=== PATIENT | female | born 1970 | race American Indian/Alaskan Native ===

== ENCOUNTER 2018-02-08 09:21 | Emergency (ER) | payer MEDICAID, OTHER ==
[2018-02-08 09:33] VITALS: BP 125/87; PULSE 76; RESP 18; TEMP 98.5; O2SAT 96
[2018-02-08] MEDS ORDERED: Lidocaine 5% Patch TD STA (09:50)
--- NOTE | 2018-02-08 09:50 | C.PDOC ---
History Of Present Illness 47 y/o female presents to the ER complaining of left buttock pain which has been present for the past 2 weeks. Patient states that the pain radiates the down left leg. Patient reports that she took pain medication without relief. Denies having direct trauma, fall, injuries, weakness, and numbness. Time Seen by Provider: 02/08/18 09:43 Chief Complaint (Nursing): Lower Extremity Problem/Injury History Per: Patient History/Exam Limitations: no limitations Onset/Duration Of Symptoms: Days Current Symptoms Are (Timing): Still Present Severity: Moderate Past Medical History Reviewed: Historical Data, Nursing Documentation, Vital Signs Vital Signs: Last Vital Signs Temp 98.5 F 02/08/18 09:28 Pulse 76 02/08/18 09:28 Resp 18 02/08/18 09:28 BP 125/87 02/08/18 09:28 Pulse Ox 96 02/08/18 09:28 - Medical History PMH: No Chronic Diseases Surgical History: Cholecystectomy - [facility] APPLICATION OF SPLINT (08/10/14) Family History: States: No Known Family Hx - Social History Hx Tobacco Use: No Hx Alcohol Use: Yes Hx Substance Use: No - Immunization History Hx Tetanus Toxoid Vaccination: No Hx Influenza Vaccination: No Hx Pneumococcal Vaccination: No Review Of Systems Except As Marked, All Systems Reviewed And Found Negative. Musculoskeletal: Positive for: Other (left hip pain) Neurological: Negative for: Weakness, Numbness Physical Exam - Physical Exam Appears: Non-toxic, No Acute Distress Skin: Normal Color, Warm, Dry Head: Atraumatic, Normacephalic Eye(s): bilateral: Normal Inspection Nose: Normal Oral Mucosa: Moist Neck: Supple Chest: Symmetrical Extremity: Normal ROM, Tenderness (tenderness to the left buttock), No Swelling Neurological/Psych: Oriented x3, Normal Speech ED Course And Treatment O2 Sat by Pulse Oximetry: 96 (RA) Pulse Ox Interpretation: Normal Medical Decision Making Medical Decision Making: Plan: --Tylenol PO --Motrin PO --Flexeril PO --Lidoderm Patch Disposition Counseled Patient/Family Regarding: Diagnosis, Need For Followup, Rx Given - Disposition Disposition: HOME/ ROUTINE Disposition Time: 10:49 Condition: STABLE Additional Instructions: Rest for the next 2 days. Follow up with your doctor. Do not drive while taking Flexeril. If you need to drive save the medication for the evening before bedtime. Prescriptions: Cyclobenzaprine [Cyclobenzaprine HCl] 10 mg PO TID #12 tab Ibuprofen [Motrin] 600 mg PO TID #12 tab Lidocaine 5% [Lidoderm] 1 ea TD DAILY #3 patch Prednisone [Deltasone] 60 mg PO DAILY #12 tablet Instructions: Sciatica (DC) Forms: General Discharge Instructions, [facility] (Romanian), Work Excuse - POA Present On Arrival: None - Clinical Impression Clinical Impression: Sciatica of left side - Scribe Statement The provider has reviewed the documentation as recorded by the Inderibe Venkata [place] Provider Attestation: All medical record entries made by the Inderibe were at my direction and personally dictated by me. I have reviewed the chart and agree that the record accurately reflects my personal performance of the history, physical exam, medical decision making, and the department course for this patient. I have also personally directed, reviewed, and agree with the discharge instructions and disposition.
[2018-02-08] MEDS ORDERED: Lidocaine 5% Patch TD ONE (09:59)
== END 2018-02-08 10:58 | disposition home or self-care (01) ==
LOC: C.ER 09:21
DX: M54.32 Sciatica, left side (principal)